=== PATIENT | female | born 1995 | race Caucasian/White ===

== ENCOUNTER 2023-04-04 11:30 | Emergency (ER) | payer SELFPAY ==
[2023-04-04] MEDS ORDERED: Oxymetazoline 0.05% Nasal Spray 30 ML Bottle NAS ONE (11:40)
== END 2023-04-04 12:20 | disposition home or self-care (01) ==
LOC: MW.ED 11:30
DX: R04.0 Epistaxis (principal)
CPT/HCPCS: 99283; A9270

== ENCOUNTER 2023-06-19 19:18 | Emergency (ER) | payer SELFPAY ==
[2023-06-19] MEDS ORDERED: Ibuprofen 600 MG Tab PO ONE (19:46)
== END 2023-06-19 21:00 | disposition home or self-care (01) ==
LOC: MW.ED 19:18
DX: M25.572 Pain in left ankle and joints of left foot (principal); W10.8XXA Fall (on) (from) other stairs and steps, initial encounter
CPT/HCPCS: 73590; 73610; 73620; 99283; A9270